=== PATIENT | female | born 1945 | race Caucasian/White ===

== ENCOUNTER 2016-03-04 10:04 | Outpatient (RCR) | payer MEDICARE, BC ==
[2016-03-04 10:15] VITALS: BP 176/74
[2016-03-04] MEDS ORDERED: FOSAMAX 70MG TA70 MG PO (12:05)
[2016-03-04] MEDS ORDERED: ACETAMINOPHEN500 M5 PO (12:05)
[2016-03-04] MEDS ORDERED: CITRACAL + D M1 EACH PO (12:08)
[2016-03-04] MEDS ORDERED: STOOL SOFTENER240 M2 PO (12:09)
[2016-03-04] MEDS ORDERED: NORCO 325 MG-51 TA1 PO (12:10)
[2016-03-04] MEDS ORDERED: MULTI-VITAMIN W1 TA1 PO (12:11)
[2016-03-04] MEDS ORDERED: ALEVE 220MG220 MG PO (12:12)
[2016-03-04] MEDS ORDERED: PRILOSEC 20MG20 MG PO (12:13)
[2016-03-06 10:15] VITALS: BP 164/80
[2016-03-11 10:14] VITALS: BP 131/65
[2016-03-13 10:25] VITALS: BP 179/97
--- NOTE | 2016-03-13 10:50 | NUR ---
PATIENT DOES REPORT THAT SHE TOOK A PAIN PILL AT HOME PRIOR TO ARRIVAL FOR DRESSING CHANGE TODAY. SHE STILL HAD SOME DISCOMFORT WITH REMOVAL OF OLD DRESSING.
[2016-03-13 11:06] VITALS: BP 157/89
[2016-03-18 10:51] VITALS: BP 167/93
[2016-03-20 10:47] VITALS: BP 117/97
== END 2016-06-02 | disposition home or self-care (01) ==
LOC: AMSURD
DX: Z48.00 Encounter for change or removal of nonsurgical wound dressing (principal)

== ENCOUNTER → 2016-09-15 | Day surgery (SDC) | payer MEDICARE, BC ==
[~2016-09-15] MED LIST: ACETAMINOPHEN500 M5 PO; ALEVE 220MG220 MG PO; CITRACAL + D M1 EACH PO; FOSAMAX 70MG TA70 MG PO; MULTI-VITAMIN W1 TA1 PO; NORCO 325 MG-51 TA1 PO; PRILOSEC 20MG20 MG PO; STOOL SOFTENER240 M2 PO
== END ==
LOC: MSO 14:31
DX: K21.9 Gastro-esophageal reflux disease without esophagitis (principal); R13.13 Dysphagia, pharyngeal phase; I10 Essential (primary) hypertension
CPT/HCPCS: 00740; A4649; J7120

== ENCOUNTER → 2016-10-29 | Outpatient (CLI) | payer MEDICARE, BC | LOC: LAB 15:48 | DX: L03.119 Cellulitis of unspecified part of limb (principal); I10 Essential (primary) hypertension; Z96.659 Presence of unspecified artificial knee joint; M79.89 Other specified soft tissue disorders ==

== ENCOUNTER → 2016-11-04 | Outpatient (REF) | LOC: LAB 05:35 | DX: Z79.899 Other long term (current) drug therapy (principal) ==

== ENCOUNTER 2017-01-20 13:00 | Outpatient (RCR) | payer MEDICARE, BC | END 2017-01-20 13:30 | disposition home or self-care (01) | LOC: PT 13:00 | DX: M54.9 Dorsalgia, unspecified (principal) | CPT/HCPCS: G8978-GP; G8979-GP ==

== ENCOUNTER → 2017-08-03 | Outpatient (CLI) | payer MEDICARE, BC | LOC: RAD 07-27 10:45 → MAMMO 09:48 → RAD 10:00 | DX: Z13.820 Encounter for screening for osteoporosis (principal); M85.80 Other specified disorders of bone density and structure, unspecified site ==

== ENCOUNTER → 2017-08-03 | Outpatient (CLI) | payer MEDICARE, BC | LOC: RAD 07-27 11:30 → MAMMO 09:52 → RAD 10:45 | DX: Z12.31 Encounter for screening mammogram for malignant neoplasm of breast (principal) ==

== ENCOUNTER → 2017-11-22 | Day surgery (SDC) | payer MEDICARE, BC | LOC: MSO 08:05 | DX: Z12.11 Encounter for screening for malignant neoplasm of colon (principal); Z80.0 Family history of malignant neoplasm of digestive organs; I10 Essential (primary) hypertension; K21.9 Gastro-esophageal reflux disease without esophagitis; Z79.899 Other long term (current) drug therapy | CPT/HCPCS: 00812; J2704; J3010; J7120 ==

== ENCOUNTER → 2018-11-14 | Outpatient (CLI) | payer MEDICARE, BC | LOC: RAD 09:47 | DX: R42 Dizziness and giddiness (principal); H54.7 Unspecified visual loss; H53.9 Unspecified visual disturbance ==

== ENCOUNTER → 2020-08-28 | Outpatient (CLI) | payer MEDICARE, BC | LOC: RAD 10:40 | DX: Z13.820 Encounter for screening for osteoporosis (principal); M85.80 Other specified disorders of bone density and structure, unspecified site; Z78.0 Asymptomatic menopausal state ==

== ENCOUNTER → 2020-08-28 | Outpatient (CLI) | payer MEDICARE, BC | LOC: MAMMO 10:37 | DX: Z12.31 Encounter for screening mammogram for malignant neoplasm of breast (principal); M85.80 Other specified disorders of bone density and structure, unspecified site ==

== ENCOUNTER → 2021-12-31 | Outpatient (CLI) | payer MEDICARE, BC | LOC: RAD 09:46 | DX: J84.10 Pulmonary fibrosis, unspecified (principal); J47.9 Bronchiectasis, uncomplicated ==